=== PATIENT | female | born 1955 | race Caucasian/White ===

== ENCOUNTER 2016-12-01 15:02 | Outpatient (RCR) | payer OTHER ==
[~2016-12-01 15:02] MED LIST: ASP81TEC; DICL500C PO; GARL400T13; GARLIC; HYDR-3583 PO; MULT-608; NIAC250T17; OMG1KC
== END 2016-12-01 15:57 | disposition home or self-care (01) ==
PROVIDERS: ATTEND Podiatrist
DX: M76.62 Achilles tendinitis, left leg (principal)

== ENCOUNTER 2021-10-27 05:46 | Outpatient (CLI) | payer MEDICARE, OTHER ==
[~2021-10-27] VITALS: Ht 157.5 cm; Wt 145.5 kg
[2021-11-01] MEDS ORDERED: METO75TA PO (11:02)
[2021-11-01] MEDS ORDERED: POTA8CAP20 PO (11:02)
[2021-11-01] MEDS ORDERED: LISI40TA9 PO (11:02)
[2021-11-01] MEDS ORDERED: BUPR150T28 PO (11:02)
[2021-11-01] MEDS ORDERED: FURO20TA4 PO (11:02)
[2021-11-01] MEDS ORDERED: CIPR500S3 PO (16:16)
[2021-11-01] MEDS ORDERED: METR-145 PO (16:16)
== END 2021-11-01 16:17 | disposition home or self-care (01) ==
LOC: PREOP 05:46
PROVIDERS: ATTEND Specialist
DX: Z01.818 Encounter for other preprocedural examination (principal)

== ENCOUNTER 2021-11-04 06:03 | Day surgery (SDC) | payer MEDICARE, OTHER ==
[~2021-11-04] VITALS: Ht 157.5 cm; Wt 145.5 kg
[~2021-11-04 06:03] MED LIST changes: +BUPR150T28 PO; +CIPR500S3 PO; +FURO20TA4 PO; +LISI40TA9 PO; +METO75TA PO; +METR-145 PO; +POTA8CAP20 PO
[2021-11-04] MEDS ORDERED: MOXIFLOXACIN OPHTH SOLN 5 MG/ML 0.3 ML SYRINGE OP ONE (06:15)
[2021-11-04] MEDS ORDERED: LIDOCAINE PF 1% 2 ML VIAL IR PRN (06:15)
[2021-11-04] MEDS ORDERED: POVIDONE (BETADINE) OPHTH SOLN 5% 30 ML OP ONE (06:15)
[2021-11-04] MEDS ORDERED: TIMOLOL MALEATE 0.5% 5 ML (TIMOPTIC) BTL OU PRN (06:15)
[2021-11-04] MEDS: TETRACAINE 0.5% OPHTH SOLN 4 ML BTL (SINGLE DOSE ONLY) OU PRN ×4 (06:21→06:42)
[2021-11-04 06:24] VITALS: BP 175/100
[2021-11-04] MEDS: TROPICAMIDE 1% OPH SOLN (MYDRIACYL) 15 ML BTL OP SCH ×3 (06:29→06:42)
[2021-11-04] MEDS: PHENYLEPHRINE 10% OPHTH (NEO-SYN) 5 ML BTL OU SCH ×3 (06:29→06:42)
[2021-11-04] MEDS ORDERED: MIDAZOLAM 2 MG/2 ML (VERSED) VIAL ONE (07:06)
--- NOTE | 2021-11-04 07:11 | Ophthalmologist Pre-Op Note ---
Pre-Operative Progress Note H&P Reviewed The H&P was reviewed, patient examined and no changes noted. Date H&P Reviewed: Nov 04, 2021 Time H&P Reviewed: 07:11 Pre-Op Dx Cataract, Left Eye ROYAL SABILLON MD Nov 04, 2021 07:11
--- NOTE | 2021-11-04 07:29 | Ophthalmology Operative Report ---
Cataract removal/placement IOL PREOPERATIVE DIAGNOSIS: Cataract Left Eye POSTOPERATIVE DIAGNOSIS: Cataract Left Eye PROCEDURE: Cataract removal and placement of posterior chamber implant, left eye SURGEON: Zbigniew Sabillon ANESTHESIA: Topical with sedation COMPLICATIONS: None ESTIMATED BLOOD LOSS: Minimal DESCRIPTION OF PROCEDURE: After proper informed consent was obtained, the patient, a 66 female, was taken to the Operating Room and the left eye was anesthetized with tetracaine. The left eye was then prepped and draped in the usual manner. A wire lid speculum was placed. A paracentesis was made at the left hand position. Preservative free lidocaine was injected into the anterior chamber followed by viscoelastic. A clear corneal incision was made in the temporal position. A capsulorrhexis was preformed and the central nuclear and cortical material were removed. The posterior capsule was polished and an Speedy 21.0 AU00T0 was placed into the capsular bag. The residual viscoelastic was aspirated and balanced saline solution was injected into the anterior chamber. Moxifloxacin was injected into the anterior chamber. The wound was checked and found to be water tight. The patient tolerated the procedure well without complications. ZBIGNIEW SABILLON MD Nov 04, 2021 07:29
[2021-11-04 07:35] VITALS: BP 152/74
[2021-11-04] MEDS ORDERED: acetaZOLAMIDE ER 500 MG CAP (DIAMOX SEQUELS) PO ONE (09:00)
--- NOTE | 2021-11-04 13:15 | Anesthesia-General Post-Op ---
MAC Patient Condition Mental Status/LOC: Same as Preop Cardiovascular: Satisfactory Nausea/Vomiting: Absent Respiratory: Satisfactory Pain: Controlled Complications: Absent Post Op Complications Complications None Follow Up Care/Instructions Patient Instructions None needed. Anesthesiology Discharge Order Discharge Order Patient is doing well, no complaints, stable vital signs, no apparent adverse anesthesia problems. No complications reported per nursing. DENISE HANDLEY CRNA Nov 04, 2021 13:15
== END 2021-11-04 07:36 | disposition home or self-care (01) ==
LOC: SDC 06:03
PROVIDERS: ATTEND Specialist
DX: H25.9 Unspecified age-related cataract (principal); Z87.891 Personal history of nicotine dependence; E66.01 Morbid (severe) obesity due to excess calories; Z68.43 Body mass index [BMI] 50.0-59.9, adult
CPT/HCPCS: 66984; V2632

== ENCOUNTER → 2021-11-09 | Outpatient (CLI) | payer MEDICARE, OTHER | END | disposition home or self-care (01) | LOC: PREOP 05:39 | PROVIDERS: ATTEND Specialist | DX: Z01.818 Encounter for other preprocedural examination (principal) ==

== ENCOUNTER 2021-11-18 11:35 | Day surgery (SDC) | payer MEDICARE, OTHER ==
[~2021-11-18] VITALS: Ht 157.5 cm; Wt 145.5 kg
[2021-11-18] MEDS ORDERED: MOXIFLOXACIN OPHTH SOLN 5 MG/ML 0.3 ML SYRINGE OP ONE (12:30)
[2021-11-18] MEDS ORDERED: POVIDONE (BETADINE) OPHTH SOLN 5% 30 ML OP ONE (12:30)
[2021-11-18] MEDS ORDERED: TIMOLOL MALEATE 0.5% 5 ML (TIMOPTIC) BTL OU PRN (12:30)
[2021-11-18] MEDS ORDERED: LIDOCAINE PF 1% 2 ML VIAL IR PRN (12:30)
[2021-11-18] MEDS: TETRACAINE 0.5% OPHTH SOLN 4 ML BTL (SINGLE DOSE ONLY) OU PRN ×4 (12:33→12:49)
[2021-11-18] MEDS: TROPICAMIDE 1% OPH SOLN (MYDRIACYL) 15 ML BTL OP SCH ×3 (12:39→12:49)
[2021-11-18] MEDS: PHENYLEPHRINE 10% OPHTH (NEO-SYN) 5 ML BTL OU SCH ×3 (12:39→12:49)
[2021-11-18 12:45] VITALS: BP 159/101
--- NOTE | 2021-11-18 13:22 | Ophthalmologist Pre-Op Note ---
Pre-Operative Progress Note H&P Reviewed The H&P was reviewed, patient examined and no changes noted. Date H&P Reviewed: November 18, 2021 Time H&P Reviewed: 13:22 Pre-Op Dx Cataract, Right Eye ROYAL SABILLON MD November 18, 2021 13:22
[2021-11-18] MEDS ORDERED: MIDAZOLAM 2 MG/2 ML (VERSED) VIAL ONE (13:29)
[2021-11-18 13:52] VITALS: BP 191/111
--- NOTE | 2021-11-18 13:52 | Ophthalmology Operative Report ---
Cataract removal/placement IOL PREOPERATIVE DIAGNOSIS: Cataract Right Eye POSTOPERATIVE DIAGNOSIS: Cataract Right Eye PROCEDURE: Cataract removal and placement of posterior chamber implant, right eye SURGEON: Zbigniew Sabillon ANESTHESIA: Topical with sedation COMPLICATIONS: None ESTIMATED BLOOD LOSS: Minimal DESCRIPTION OF PROCEDURE: After proper informed consent was obtained, the patient, a 66 female, was taken to the Operating Room and the right eye was anesthetized with tetracaine. The right eye was then prepped and draped in the usual manner. A wire lid speculum was placed. A paracentesis was made at the left hand position. Preservative free lidocaine was injected into the anterior chamber followed by viscoelastic. A clear corneal incision was made in the temporal position. A capsulorrhexis was preformed and the central nuclear and cortical material were removed. The posterior capsule was polished and Speedy 19.5 AU00T0 IOL was placed into the capsular bag. The residual viscoelastic was aspirated and balanced saline solution was injected into the anterior chamber. Moxifloxacin was injected into the anterior chamber. The wound was checked and found to be water tight. The patient tolerated the procedure well without complications. ZBIGNIEW SABILLON MD November 18, 2021 13:51
[2021-11-18] MEDS ORDERED: acetaZOLAMIDE ER 500 MG CAP (DIAMOX SEQUELS) PO ONE (14:00)
--- NOTE | 2021-11-18 14:23 | Anesthesia-General Post-Op ---
MAC Patient Condition Mental Status/LOC: Same as Preop Cardiovascular: Satisfactory Nausea/Vomiting: Absent Respiratory: Satisfactory Pain: Controlled Complications: Absent Post Op Complications Complications None Follow Up Care/Instructions Patient Instructions None needed. Anesthesiology Discharge Order Discharge Order Patient is doing well, no complaints, stable vital signs, no apparent adverse anesthesia problems. No complications reported per nursing. ALDEN VEGA CRNA November 18, 2021 14:23
== END 2021-11-18 14:03 | disposition home or self-care (01) ==
LOC: SDC 11:35
PROVIDERS: ATTEND Specialist
DX: H25.9 Unspecified age-related cataract (principal); E66.01 Morbid (severe) obesity due to excess calories; Z68.43 Body mass index [BMI] 50.0-59.9, adult
CPT/HCPCS: 66984; V2632

== ENCOUNTER 2022-10-11 17:14 | Emergency (ER) | payer MEDICARE ==
[~2022-10-11] VITALS: Ht 157 cm; Wt 140.6 kg
[2022-10-11] MEDS ORDERED: NS IV 1000 ML 1,000 ML IV STA (17:31)
--- NOTE | 2022-10-11 17:36 | ED Abdominal Pain ---
General Chief Complaint: Abdominal/GI Problems Stated Complaint: RIGHT SIDE PAIN Nursing Triage Note: PT REPORTS HEARTBURN/INDEGESTION AND EPIGASTRIC PAIN THAT BEGAN LAST NOC WHEN SHE LAID DOWN TO SLEEP. THROUGHOUT THE NIGHT, PT STATES THE PAIN HAS SINCE RADIATED DOWN TO HER RLQ ABDOMINAL REGION + NAUSEA. PAIN IS INTERMITTENT AND SHARP. Source of Information: Patient Exam Limitations: No Limitations History of Present Illness Date Seen by Provider: Oct 11, 2022 Time Seen by Provider: 17:32 Initial Comments Patient is a 67-year-old female who presents ED with right-sided abdominal pain. Pain started last night acute onset initially described as sharp. This pain has been intermittent and started become more dull this afternoon. She does report some frequent urination and pain. Nausea this afternoon without any vomiting or diarrhea. History of total hysterectomy, cholecystectomy, appendectomy. Denies history of similar pain. Denies taking anything for pain. Denies fever, chills, chest pain, shortness of breath, rectal bleeding ,cough. Patient denies history of kidney stones. Allergies and Home Medications Allergies Coded Allergies: Tammy Known Allergies (Unverified Allergy, Mild, 11/01/21) Patient Home Medication List Home Medication List Reviewed: Yes Bupropion HCl (Bupropion HCl Sr) 150 Mg Tablet.er, 150 MG PO BID, (Reported) Entered as Reported by: OTIS JEWELL on 11/01/211101 Ciprofloxacin (Ciprofloxacin) 500 Mg/5 Ml Lissett.mc.rec, 500 MG PO BID, (Reported) Entered as Reported by: OTIS JEWELL on 11/01/21 161 Furosemide (Furosemide) 20 Mg Tablet, 20 MG PO DAILY, (Reported) Entered as Reported by: OTIS JEWELL on 11/01/211101 Lisinopril (Lisinopril) 40 Mg Tablet, 40 MG PO DAILY, (Reported) Entered as Reported by: OTIS JEWELL on 11/01/21 110 Metoprolol Tartrate (Metoprolol Tartrate) 75 Mg Tablet, 75 MG PO BID, (Reported) Entered as Reported by: OTIS JEWELL on 11/01/21 110 Metronidazole (Metronidazole) 500 Mg Tablet, 500 MG PO TID, (Reported) Entered as Reported by: OTIS JEWELL on 11/01/21 161 Potassium Chloride (Potassium Chloride) 8 Meq Capsule.er, 8 MEQ PO DAILY, (Reported) Entered as Reported by: OTIS JEWELL on 11/01/21 1102 Review of Systems Review of Systems Constitutional: No chills, No diaphoresis, No malaise, No weakness EENTM: No Double Vision, No Eye Pain Respiratory: Denies Cough, Denies Orthopnea Cardiovascular: Denies Chest Pain Gastrointestinal: Abdominal Pain; Denies Diarrhea; Nausea; Denies Vomiting Musculoskeletal: No back pain, No joint pain Skin: No change in color, No change in hair/nails All Other Systems Reviewed Negative Unless Noted: Yes Past Ifxrvrf-Yvupbx-Bzilbo Hx Patient Social History Tobacco Use?: No Substance use?: No Alcohol Use?: No Pt feels they are or have been: No Immunizations Up To Date Influenza Vaccine Up-to-Date: Yes; Up-to-Date Past Medical History Reproductive Disorders: Yes (HYST) Physical Exam Vital Signs Vital Signs - First Documented 10/11/22 17:25 Temp 36.7 Pulse 90 Resp 18 B/P (MAP) 206/108 (140) Pulse Ox 97 O2 Delivery Room Air Capillary Refill : Less Than 3 Seconds Height/Weight/BMI Height: '" Weight: lbs. oz. kg; 57.00 BMI Method: General Appearance: WD/WN, no apparent distress HEENT: PERRL/EOMI, normal ENT inspection, TMs normal, pharynx normal Neck: non-tender, full range of motion, supple Respiratory: chest non-tender, lungs clear, normal breath sounds, no respiratory distress, no accessory muscle use Cardiovascular: regular rate, rhythm, no edema, no gallop, no JVD Gastrointestinal: normal bowel sounds, soft, no organomegaly, no pulsatile mass, tenderness (Right-sided abdominal tenderness. Normal bowel sounds. 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, no motor/sensory deficits, alert, normal mood/affect, oriented x 3 Skin: normal color, warm/dry Progress/Results/Core Measures Results/Orders Lab Results Laboratory Tests Test 10/11/22 17:35 10/11/22 17:45 Range/Units Urine Color YELLOW Urine Clarity CLEAR Urine pH 6.0 5-9 Urine Specific Archer 1.025 H 1.016-1.022 Urine Protein TRACE H NEGATIVE Urine Glucose (UA) NEGATIVE NEGATIVE Urine Ketones NEGATIVE NEGATIVE Urine Nitrite NEGATIVE NEGATIVE Urine Bilirubin NEGATIVE NEGATIVE Urine Urobilinogen 0.2 < = 1.0 MG/DL Urine Leukocyte Esterase NEGATIVE NEGATIVE Urine RBC (Auto) 3+ H NEGATIVE Urine RBC 50-100 H /HPF Urine WBC 0-2 /HPF Urine Squamous Epithelial Cells 25-50 H /HPF Urine Crystals NONE /LPF Urine Bacteria FEW H /HPF Urine Casts NONE /LPF Urine Mucus LARGE H /LPF Urine Culture Indicated NO White Blood Count 11.1 H 4.3-11.0 10^3/uL Red Blood Count 4.44 3.80-5.11 10^6/uL Hemoglobin 13.3 11.5-16.0 g/dL Hematocrit 42 35-52 % Mean Corpuscular Volume 94 80-99 fL Mean Corpuscular Hemoglobin 30 25-34 pg Mean Corpuscular Hemoglobin Concent 32 32-36 g/dL Red Cell Distribution Width 15.0 H 10.0-14.5 % Platelet Count 243 130-400 10^3/uL Mean Platelet Volume 9.6 9.0-12.2 fL Immature Granulocyte % (Auto) 0 % Neutrophils (%) (Auto) 83 H 42-75 % Lymphocytes (%) (Auto) 9 L 12-44 % Monocytes (%) (Auto) 6 0-12 % Eosinophils (%) (Auto) 1 0-10 % Basophils (%) (Auto) 0 0-10 % Neutrophils # (Auto) 9.2 H 1.8-7.8 10^3/uL Lymphocytes # (Auto) 1.0 1.0-4.0 10^3/uL Monocytes # (Auto) 0.7 0.0-1.0 10^3/uL Eosinophils # (Auto) 0.1 0.0-0.3 10^3/uL Basophils # (Auto) 0.0 0.0-0.1 10^3/uL Immature Granulocyte # (Auto) 0.0 0.0-0.1 10^3/uL Sodium Level 141 135-145 MMOL/L Potassium Level 3.6 3.6-5.0 MMOL/L Chloride Level 104 98-107 MMOL/L Carbon Dioxide Level 27 21-32 MMOL/L Anion Gap 10 5-14 MMOL/L Blood Urea Nitrogen 14 7-18 MG/DL Creatinine 0.92 0.60-1.30 MG/DL Estimat Glomerular Filtration Rate 69 BUN/Creatinine Ratio 15 Glucose Level 103 70-105 MG/DL Calcium Level 10.0 8.5-10.1 MG/DL Corrected Calcium 9.9 8.5-10.1 MG/DL Total Bilirubin 0.4 0.1-1.0 MG/DL Aspartate Amino Transf (AST/SGOT) 23 5-34 U/L Alanine Aminotransferase (ALT/SGPT) 26 0-55 U/L Alkaline Phosphatase 85 40-136 U/L Total Protein 7.5 6.4-8.2 GM/DL Albumin 4.1 3.2-4.5 GM/DL Lipase 22 8-78 U/L My Orders Orders - TALON ALEX Ua Culture If Indicated (10/11/22 17:27) Cbc With Automated Diff (10/11/22 17:31) Comprehensive Metabolic Panel (10/11/22 17:31) Lipase (10/11/22 17:31) Ns Iv 1000 Ml (Sodium Chloride 0.9%) (10/11/22 17:31) Ct Abd/Pelvis Wo(Kidney Stone) (10/11/22 17:31) Vital Signs/I&O 10/11/22 17:25 Temp 36.7 Pulse 90 Resp 18 B/P (MAP) 206/108 (140) Pulse Ox 97 O2 Delivery Room Air Blood Pressure Mean: 140 Departure Communication (PCP) Reviewed previous ER visits, H&P, lab testing. Cute onset of right lower right lateral abdomen since last night. Pain initially was sharp and intermittent. Now pain is dull. She refused pain medication. History of an appendectomy, cholecystectomy, total hysterectomy. Due to presentation CBC, CMP, lipase, urinalysis CT abdomen and pelvis without contrast. Differential diagnosis of cystitis, pyelonephritis, ureterolithiasis, nephrolithiasis. CBC showed white blood count 11.1. Otherwise unremarkable. Normal chemistry. Normal kidney function urinalysis positive for hematuria without evidence of infection. CT abdomen and pelvis shows mild right hydronephrosis which may be secondary to a couple punctuate 1 mm stones within the distal right ureter at the ureterovesical junction. Patient was given a liter of fluid. Patient continued to have no pain here. Patient will be discharged with Flomax, pain medication, Zofran for nausea. Discussed continue with pain regimen. Discussed hydration. If any worsening symptoms such as pain to return back to ED. Provided outpatient urology follow-up. Impression Primary Impression: Ureterolithiasis Disposition: 01 HOME, SELF-CARE Condition: Stable Departure-Patient Inst. Decision time for Depature: 18:43 Referrals: RODOLFO GENAO (PCP) Primary Care Physician Patient Instructions: Kidney Stone Diet Add. Discharge Instructions: Recommend hydration. Zofran for nausea. Pain medication as needed. If continued pain, fever, chills may return back to ED. Outpatient urology follow- up [facility] [phone] All discharge instructions reviewed with patient and/or family. Voiced understanding. Scripts Ondansetron (Ondansetron Odt) 4 Mg Tab.rapdis 4 MG SL Q4H PRN for NAUSEA/VOMITING, #6 TAB Prov: TALON ALEX 10/11/22 Tamsulosin HCl (Flomax) 0.4 Mg Cap 0.4 MG PO DAILY, #14 CAP Prov: TALON ALEX 10/11/22 Hydrocodone/Acetaminophen (Hydrocodone-Acetamin 5-325 mg) 5 Mg-325 Mg Tablet 1 TAB PO Q4H PRN for PAIN-MODERATE (5-7), #8 TAB Prov: TALON ALEX 10/11/22 TALON ALEX Oct 11, 2022 17:36
[2022-10-11 17:57] LABS: BILIRUBIN,URINE NEGATIVE (NEGATIVE); CLARITY,URINE CLEAR; COLOR,URINE YELLOW; GLUCOSE, URINE (UA) NEGATIVE (NEGATIVE); KETONES,URINE NEGATIVE (NEGATIVE); LEUKOCYTE ESTERASE ,URINE NEGATIVE (NEGATIVE); NITRITE,URINE NEGATIVE (NEGATIVE); PROTEIN,URINE TRACE (NEGATIVE)
[2022-10-11 17:57] LABS: BASOPHILS % (AUTO) 0 % (0-10); EOSINOPHILS # (AUTO) 0.1 10^3/uL (0.0-0.3); EOSINOPHILS % (AUTO) 1 % (0-10); HEMATOCRIT 42 % (35-52); HEMOGLOBIN 13.3 g/dL (11.5-16.0); LYMPHOCYTES % (AUTO) 9 % (12-44); MEAN CORPUSCULAR HEMOGLOBIN 30 pg (25-34); MEAN CORPUSCULAR HGB CONC 32 g/dL (32-36); MEAN CORPUSCULAR VOLUME 94 fL (80-99); MEAN PLATELET VOLUME 9.6 fL (9.0-12.2); MONOCYTES # (AUTO) 0.7 10^3/uL (0.0-1.0); MONOCYTES % (AUTO) 6 % (0-12); NEUTROPHILS # (AUTO) 9.2 10^3/uL (1.8-7.8); NEUTROPHILS % (AUTO) 83 % (42-75); PLATELET COUNT 243 10^3/uL (130-400); WHITE BLOOD COUNT 11.1 10^3/uL (4.3-11.0)
[2022-10-11 18:11] LABS: ALBUMIN 4.1 GM/DL (3.2-4.5)
[2022-10-11 18:12] LABS: POTASSIUM 3.6 MMOL/L (3.6-5.0)
[2022-10-11 18:14] LABS: TOTAL PROTEIN 7.5 GM/DL (6.4-8.2)
[2022-10-11 18:16] LABS: BILIRUBIN,TOTAL 0.4 MG/DL (0.1-1.0)
--- NOTE | 2022-10-11 18:17 | Diagnostic Imaging Report ---
EXAMINATION: CT abdomen and pelvis without contrast. TECHNIQUE: Multiple contiguous axial images were obtained through the abdomen and pelvis without the use of intravenous contrast. All CT scans use one or more of the following dose optimizing techniques: automated exposure control, MA and/or KvP adjustment based on patient size and exam type or iterative reconstruction. HISTORY: right sided abd pain COMPARISON: None available. FINDINGS: Lung bases: The lung bases are clear. Solid organs: The liver is normal. The gallbladder is surgically absent. There is no biliary ductal dilation. Pancreas is normal. Spleen is normal. Adrenal glands are normal. There is mild right hydronephrosis. There may be a couple of tiny punctate 1 mm stones within the distal right ureter. Bowel: The stomach and small bowel are normal without obstruction. There is scattered colonic diverticulosis. Peritoneum: There is no intraperitoneal free fluid or free air. No suspicious lymphadenopathy. Vasculature: Normal without aneurysm. Musculoskeletal: Degenerative changes of the spine without suspicious osseous lesion or compression fracture. Pelvis: The uterus is surgically absent. No adnexal mass. The urinary bladder is normal. IMPRESSION: 1. Mild right hydronephrosis which may be secondary to a couple of punctate 1 mm stones within the distal right ureter at the ureterovesicular junction. 2. Colonic diverticulosis. Dictated by: Dictated on workstation # [id number]
[2022-10-11 18:18] LABS: CREATININE SERUM 0.92 MG/DL (0.60-1.30)
[2022-10-11 18:37] LABS: RBC,URINE 50-100 /HPF
[2022-10-11 18:39] LABS: BACTERIA,URINE FEW /HPF; WBC,URINE 0-2 /HPF
[2022-10-11 18:40] LABS: SQUAMOUS EPITHELIAL CELL,UR 25-50 /HPF
[2022-10-11] MEDS ORDERED: ONDA4TAB11 SL (18:44)
[2022-10-11] MEDS ORDERED: TMSL.4C PO (18:44)
[2022-10-11] MEDS ORDERED: ACHD5005 PO (18:44)
[2022-10-11] MEDS ORDERED: KETOROLAC 30 MG/ML VIAL IVP ONE (19:00)
[2022-10-11 19:07] VITALS: BP 168/94
== END 2022-10-11 19:08 | disposition home or self-care (01) ==
LOC: EDUNIT# 17:14 → ER 17:17
DX: N13.2 Hydronephrosis with renal and ureteral calculous obstruction (principal); Z90.49 Acquired absence of other specified parts of digestive tract; Z90.710 Acquired absence of both cervix and uterus
CPT/HCPCS: 36415; 74176; 80053; 81000; 83690; 85025